=== PATIENT | male | born 1990 | race Caucasian/White ===

== ENCOUNTER 2019-07-07 19:56 | Emergency (ER) | payer BC, OTHER ==
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
== END 2019-07-07 21:00 | disposition home or self-care (01) ==
LOC: MW.ED 19:56
DX: M54.2 Cervicalgia (principal); Z88.1 Allergy status to other antibiotic agents; V49.9XXA Car occupant (driver) (passenger) injured in unspecified traffic accident, initial encounter; Y92.410 Unspecified street and highway as the place of occurrence of the external cause
CPT/HCPCS: 71045; 71045-26; 72125; 72125-26; 99283; 99283-25